=== PATIENT | male | born 1990 | race Caucasian/White ===

== ENCOUNTER 2017-06-22 16:25 | Emergency (ER) | payer SELFPAY ==
[~2017-06-22] VITALS: Ht 172.7 cm; Wt 64.0 kg
[~2017-06-22 16:25] MED LIST: IBUP800T23 PO
[2017-06-22 16:32] VITALS: BP 136/81; PULSE 85; RESP 16; TEMP 98.4; O2SAT 99
[2017-06-22] MEDS ORDERED: IBUP1TAB7 PO (17:10)
[2017-06-22] MEDS ORDERED: PENI500T PO (17:10)
--- NOTE | 2017-06-22 17:13 | PD ---
HPI Chief Complaint: Oral / Dental Pain or Problem Time Seen by Provider: 17:06 Travel History International Travel<30 days: No Contact w/Intl Traveler<30days: No Traveled to known affect area: No History of Present Illness HPI 27-year-old male presents to the ED for evaluation of 2 day history of 10/10 right upper jaw dental pain. Gradual onset. Pain is constant, throbbing, no alleviating or exacerbating factors reported. Patient endorses several dental problems in the area but denies new trauma. He denies fever, chills, nausea, vomiting. He does not have a dentist. PFSH Social History Alcohol Use: No Tobacco Use: Yes Allergies-Medications (Allergen,Severity, Reaction): Coded Allergies: No Known Allergies (Unverified , 10/22/14) Reported Meds & Prescriptions Reported Meds & Active Scripts Active Penicillin V Potassium 500 Mg Tab 500 Mg PO Q6H 7 Days Ibuprofen 800 Mg Tab 800 Mg PO Q8H PRN Ibuprofen 800 Mg Tab 800 Mg PO TID 10 Days Review of Systems Except as stated in HPI: all other systems reviewed are Neg Physical Exam Narrative GENERAL: Well-nourished, well-developed white male in NAD. SKIN: Warm and dry. HEAD: Normocephalic. Atraumatic. EYES: No scleral icterus. No injection or drainage. PERRLA. EOMI. ENT: Pearly byrd tympanic membranes bilaterally. Nasal mucosa is moist. Oropharynx without erythema, edema or exudate. DENTAL: Poor dentition overall. There are large dental caries to the gum line in teeth 3,30 and 14. Mild erythema of the surrounding mucosa. No drainable abscess noted. NECK: Supple, trachea midline. No JVD or lymphadenopathy. CARDIOVASCULAR: Regular rate and rhythm without murmurs, gallops, or rubs. No carotid bruits. 2+ DP and radial pulses bilaterally. RESPIRATORY: Breath sounds clear and equal bilaterally. No accessory muscle use. GASTROINTESTINAL: Abdomen soft, non-tender, nondistended. + Bowel sounds MUSCULOSKELETAL: No cyanosis, or edema. Full, active range of motion. Strength 5/5. Neurovascularly intact. BACK: Nontender without obvious deformity. No CVA tenderness. Data Data Last Documented VS Vital Signs Date Time Temp Pulse Resp B/P (MAP) Pulse Ox O2 Delivery O2 Flow Rate FiO2 06/22/17 16:32 98.4 85 16 136/81 (99) 99 Orders Orders Acetamin-Hydrocod 325-5 Mg ([place] 5-325 (06/22/17 17:15) Ed Discharge Order (06/22/17 17:13) [facility] Medical Decision Making Medical Screen Exam Complete: Yes Emergency Medical Condition: Yes Differential Diagnosis dental caries versus dental abscess versus dental caries versus other Narrative Course 27-year-old male presents to the ED for evaluation of 2 day history of 10/10 right upper jaw dental pain. Gradual onset. Pain is constant, throbbing, no alleviating or exacerbating factors reported. Patient endorses several dental problems in the area but denies new trauma. He denies fever, chills, nausea, vomiting. He does not have a dentist. Patient is afebrile on presentation. Poor dentition overall with multiple dental caries to the gum line. No drainable abscess noted. Patient is prescribed Pen VK 500mg three times per day x 10 days and a course of ibuprofen. He is stable and discharged home. Diagnosis Primary Impression: Dental caries Additional Impression: Pain due to dental caries Referrals: Dentist Additional Instructions: Begin antibiotics today and take them until every pill is gone. 800 mg ibuprofen up to 3 times a day. Warm salt water gargles may also help to improve your symptoms. Follow-up with dentist. Return to the ED for worsening symptoms or any urgent or emergent medical condition. Med/Other Pt SpecificInfo: Prescription(s) given Scripts Penicillin V Potassium (Penicillin V Potassium) 500 Mg Tab 500 MG PO Q6H for Infection for 7 Days, #28 TAB 0 Refills Prov: Blaine Garcia MD 06/22/17 Ibuprofen (Ibuprofen) 800 Mg Tab 800 MG PO Q8H Y for Pain/Inflammation, #15 TAB 0 Refills Prov: Blaine Garcia MD 06/22/17 Disposition: 01 DISCHARGE HOME Condition: Stable Apolonia Wong Jun 22, 2017 17:13
[2017-06-22] MEDS ORDERED: ACETAMINOPHEN/HYDROcodone 325 MG/5 MG TAB PO ONE (17:15)
== END 2017-06-22 17:24 | disposition home or self-care (01) ==
LOC: NEPK 16:25
DX: K02.9 Dental caries, unspecified (principal); Z72.0 Tobacco use
CPT/HCPCS: 99283